=== PATIENT | male | born 1995 | race Caucasian/White ===

== ENCOUNTER 2017-07-22 12:12 | Emergency (ER) | payer SELFPAY ==
[~2017-07-22] VITALS: Ht 177.8 cm; Wt 81.8 kg
[2017-07-22 12:41] LABS: BASO % 0.6 % (0.0-1.0); EOS # 0.3 10^3/uL (0.0-0.50); EOS % 4.3 % (0.0-3.0); IMMATURE GRANULOCYTE % 0.5 % (0-0); LYMPH % 31.4 % (24.0-44.0); MEAN CORPUSCULAR HEMOGLOBIN 28.5 pg (27.0-33.0); MEAN CORPUSCULAR HGB CONC 36.1 g/dl (32.0-36.5); MEAN CORPUSCULAR VOLUME 78.9 fl (80.0-96.0); MONO # 0.4 10^3/uL (0.0-0.8); MONO % 6.7 % (0.0-5.0); NEUTROPHILS # 3.5 10^3/uL (1.8-7.7); NEUTROPHILS % 56.5 % (36.0-66.0); PLATELET COUNT, AUTOMATED 281 10^3/uL (150-450); WHITE BLOOD COUNT 6.2 10^3/uL (4.0-10.0)
[2017-07-22 13:06] LABS: ALBUMIN 4.3 GM/DL (3.2-5.2); ALKALINE PHOSPHATASE 99 U/L (45-117); ALT/SGPT 17 U/L (12-78); AMYLASE 79 U/L (25-115); ANION GAP 12 MEQ/L (8-16); AST/SGOT 16 U/L (15-37); BILIRUBIN,DIRECT < 0.1 MG/DL (0.0-0.2); BILIRUBIN,TOTAL 0.5 MG/DL (0.2-1.0); BLOOD UREA NITROGEN 6 MG/DL (7-18); CALCIUM LEVEL 9.4 MG/DL (8.5-10.1); CARBON DIOXIDE LEVEL 24 MEQ/L (21-32); CHLORIDE LEVEL 103 MEQ/L (98-107); CREATININE FOR GFR 0.84 MG/DL (0.70-1.30); GLOMERULAR FILTRATION RATE > 60.0 (>60); GLUCOSE, FASTING 102 MG/DL (70-105); POTASSIUM SERUM 3.2 MEQ/L (3.5-5.1); SODIUM LEVEL 139 MEQ/L (136-145); TOTAL PROTEIN 8.2 GM/DL (6.4-8.2)
[2017-07-22] MEDS ORDERED: KETOROLAC 30 MG/ML VIAL (J1885) IV ONE (14:45)
--- NOTE | 2017-07-22 15:27 | REP ---
CHEST, TWO VIEW: Two views of the chest are performed. I have no prior study for comparison. There is an oval density at the right cardiophrenic angle approximately 7-8 cm in maximum diameter. This probably represents a prominent cardiophrenic fat pad. No infiltrates are seen. The heart is normal in size and the mediastinal silhouette is otherwise unremarkable. The visualized osseous structures are intact. IMPRESSION: Density at the right cardiophrenic angle probably represents a prominent fat pad. This could be confirmed with CT of the chest. Signed by Ector Cardoza MD 07/23/2017 05:15 P
[2017-07-22] MEDS ORDERED: POTASSIUM CHLORIDE 10 MEQ SR TABLET PO ONE (16:00)
[2017-07-22] MEDS ORDERED: IBUP80TA PO (16:04)
[2017-07-22 16:12] VITALS: BP 127/82
--- NOTE | 2017-07-22 18:16 | ECGEPIP ---
Stationary ECG Study [facility] - ED Test Date: 2017-07-22 Pat Name: MELISSA CHAVIS Department: Room: - Gender: M [employer] In[employer]: noe : 1995 Requested By: Ellyn Luo Order Number: [id number] Reading MD: Sai Mullen Measurements Intervals [place] Rate: 66 P: 54 VA: 147 QRS: 68 QRSD: 91 T: 60 QT: 395 QTc: 414 Interpretive Statements SINUS RHYTHM BENIGN EARLY REPOLARIZATION NO PRIORS Electronically Signed On 07-22-2017 18:15:41 EDT by Sai Mullen
--- NOTE | 2017-07-26 07:11 | ED PDOC ---
Post-Departure Follow-Up certified letter sent to pt re formal read of cxr . see report.Mayra Odonnell MD Jul 26, 2017 07:11
== END 2017-07-22 16:13 | disposition home or self-care (01) ==
LOC: M ED 12:12
DX: R07.9 Chest pain, unspecified (principal); R06.02 Shortness of breath; J45.909 Unspecified asthma, uncomplicated; G89.29 Other chronic pain; M25.559 Pain in unspecified hip; M25.569 Pain in unspecified knee
CPT/HCPCS: 36415; 71020; 80048; 80076; 81001; 82150; 83690; 85025; 85379; 93005; 96374; 99284; J1885